=== PATIENT | female | born 1975 | race Caucasian/White ===

== ENCOUNTER → 2017-04-29 | Outpatient (CLI) | payer OTHER ==
[~2017-04-29] MED LIST: ONDA4TAB7; SUMA50TA3 PO
== END | disposition home or self-care (01) ==
LOC: CFH 11:29
PROVIDERS: ATTEND Obstetrics & Gynecology Female Pelvic Medicine and Reconstructive Surgery
DX: N63.10 Unspecified lump in the right breast, unspecified quadrant (principal); N63.20 Unspecified lump in the left breast, unspecified quadrant; N64.89 Other specified disorders of breast
CPT/HCPCS: 76642; G0204

== ENCOUNTER → 2017-05-13 | Outpatient (CLI) | payer OTHER ==
[~2017-05-13] MED LIST changes: +LIDOCAINE 1%, 10ML ONE; +LIDOCAINE 1%, 20ML ONE
== END ==
LOC: CFH 09:37
PROVIDERS: ATTEND Obstetrics & Gynecology Female Pelvic Medicine and Reconstructive Surgery
DX: D24.1 Benign neoplasm of right breast (principal); Z98.890 Other specified postprocedural states
CPT/HCPCS: 19083; 88305; G0206; J3490

== ENCOUNTER 2018-12-08 09:26 | Outpatient (CLI) | payer BC | END 2018-12-08 23:59 | disposition home or self-care (01) | LOC: CFH 09:26 | PROVIDERS: ATTEND Obstetrics & Gynecology Female Pelvic Medicine and Reconstructive Surgery | DX: Z12.31 Encounter for screening mammogram for malignant neoplasm of breast (principal); N63.20 Unspecified lump in the left breast, unspecified quadrant; N63.10 Unspecified lump in the right breast, unspecified quadrant | CPT/HCPCS: 77063; 77067 ==